=== PATIENT | female | born 1960 | race Two or more races ===

== ENCOUNTER 2021-05-23 08:42 | Inpatient (IN) | payer BC, OTHER ==
[~2021-05-23] VITALS: Ht 167.6 cm; Wt 77.0 kg
[2021-05-23] MEDS ORDERED: ALBUTEROL SULF 2.5 MG/0.5ML(0.5%) NEB SOLN NEB ONE ×3 (08:45→12:45)
[2021-05-23] MEDS ORDERED: methylPREDNISolone SOD SUCC 125 MG/2 ML VL IV ONE (08:45)
[2021-05-23] MEDS ORDERED: IPRATROPIUM BROM 0.5 MG/2.5ML INH SOL NEB ONE ×3 (08:45→12:45)
[2021-05-23 09:59] LABS: Hematocrit 40.6 % (36.0-46.0); Hemoglobin 13.9 g/dL (12.2-16.2); Mean Corpuscular Hemoglobin 31.5 pg (28.0-32.0); Mean Corpuscular Hgb Conc. 34.2 g/dL (32.0-36.0); Red Blood Cells 4.42 10^6/uL (4.0-5.20); Red Cell Distribution Width 13.8 % (11.8-14.3)
[2021-05-23 10:09] LABS: Basophils % (manual) 0 (0.0-2.0); Blast Cells 0; Eosinophils % (manual) 0 (0-7); Metamyelocytes % 0; Myelocytes % 0; Promyelocytes % 0; Reactive Lymphocytes 0
[2021-05-23 10:18] LABS: Albumin 2.4 g/dL (3.4-5.0); BUN/Creatinine Ratio 14.3; Calcium 9.5 mg/dL (8.5-10.1); Potassium 3.9 mmol/L (3.5-5.1)
[2021-05-23 10:23] LABS: Total Protein 7.5 g/dL (6.4-8.2)
[2021-05-23 10:24] LABS: Band Neutrophils % (manual) 25; Lymphocytes % (manual) 5 (10.0-50.0); Monocytes % (manual) 5 (0-12)
[2021-05-23 11:16] LABS: Urine Bacteria MANY /hpf (None Seen); Urine Blood 3+ /uL (Negative); Urine Hyaline Cast FEW /lpf (0 - 2); Urine Mucus FEW (None Seen); Urine Specific Gravity 1.026 (1.001-1.035); Urine WBC 33 /hpf (0 - 5)
[2021-05-23 11:21] LABS: INR 0.99 (0.9-1.15); Partial Thromboplastin Time 34.1 sec (23.6-33.0)
[2021-05-23] MEDS ORDERED: IOHEXOL 350 MG/ML 100ML IJ ONE (11:57)
[2021-05-23] MEDS ORDERED: cefTRIAXone 1GM/50ML D5W 50 ML IV ONE (12:15)
[2021-05-23] MEDS ORDERED: NITROGLYCERIN 0.4 MG SL TAB SL PRN ×2 (12:30→14:00)
[2021-05-23] MEDS ORDERED: MORPHINE SULFATE INJECTION 2 MG/ML SYRG IV PRN ×3 (12:30→14:00)
[2021-05-23] MEDS ORDERED: SODIUM CHLORIDE 0.9% 1,000 ML IV SCH ×2 (12:30→13:45)
[2021-05-23] MEDS ORDERED: FOLIC ACID 1 MG TAB PO ONE (12:45)
[2021-05-23] MEDS ORDERED: LORazepam 0.5 MG TAB PO PRN (12:45)
[2021-05-23] MEDS ORDERED: PANTOPRAZOLE 40 MG/10 ML VIAL INJ IV ONE (12:45)
[2021-05-23] MEDS ORDERED: METOCLOPRAMIDE HCL 5MG/ml INJ 2ml VIAL IV PRN (12:45)
[2021-05-23] MEDS ORDERED: ACETAMINOPHEN 325 MG TAB PO PRN (12:45)
[2021-05-23] MEDS ORDERED: hydrALAZINE HCL 20 MG/ML VL IV PRN (12:45)
[2021-05-23] MEDS ORDERED: levoFLOXacin 750MG 150 ML IV ONE (12:45)
[2021-05-23] MEDS ORDERED: SUCRALFATE 1 GM/10 ML ORAL SUSP PO ONE (12:45)
[2021-05-23] MEDS ORDERED: DOCUSATE SOD 100 MG CAP PO PRN (12:45)
[2021-05-23] MEDS ORDERED: MONTELUKAST SODIUM 10 MG TAB PO ONE (12:45)
[2021-05-23] MEDS ORDERED: HYDROcodone-ACET 5/325MG TAB PO ONE (12:45)
[2021-05-23] MEDS ORDERED: ENOXAPARIN SOD 100 MG/1 ML SYRINGE SC ONE (12:45)
[2021-05-23] MEDS ORDERED: MULTIPLE VITAMINS W/ MINERALS TAB PO ONE (12:45)
[2021-05-23] MEDS ORDERED: BUDESONIDE (INHALATION) 0.5 MG/2 ML NEB NEB ONE (12:45)
[2021-05-23] MEDS ORDERED: LACTULOSE 20Gm/30ML SOLN PO PRN (12:45)
[2021-05-23] MEDS ORDERED: PROMETHAZINE-DM 5 ML ORAL SYRUP GT PRN (13:00)
[2021-05-23 13:08] LABS: Magnesium 2.4 mg/dL (1.6-2.6); Phosphorus 1.8 mg/dL (2.5-4.90)
[2021-05-23] MEDS: levoFLOXacin 750MG 150 ML IV SCH (13:45)
[2021-05-23] MEDS: ALBUTEROL SULF 2.5 MG/0.5ML(0.5%) NEB SOLN NEB SCH ×4 (14:31→22:29)
[2021-05-23] MEDS: ACETYLCYSTEINE 10 %(100MG/ML) SOL 4ML NEB SCH ×2 (14:32→22:26)
[2021-05-23 14:39] LABS: INR 1.01 (0.9-1.15); Partial Thromboplastin Time 32.2 sec (23.6-33.0)
[2021-05-23] MEDS: IPRATROPIUM BROM 0.5 MG/2.5ML INH SOL NEB SCH ×4 (14:50→22:29)
[2021-05-23] MEDS: methylPREDNISolone SOD SUCC 40 MG/ML VL IV SCH ×2 (16:19→21:21)
[2021-05-23] MEDS ORDERED: IPRATROPIUM BROM 0.5 MG/2.5ML INH SOL NEB SCH (18:00)
[2021-05-23] MEDS ORDERED: HYDROcodone-ACET 5/325MG TAB PO PRN (18:00)
[2021-05-23] MEDS ORDERED: ALBUTEROL SULF 2.5 MG/0.5ML(0.5%) NEB SOLN NEB SCH (18:00)
[2021-05-23 18:20] VITALS: BP 101/61
[2021-05-23] MEDS ORDERED: ATOR10TA PO (19:01)
[2021-05-23] MEDS ORDERED: BUDE1AER6 IN (19:02)
[2021-05-23] MEDS ORDERED: CETI10TA2 PO (19:02)
[2021-05-23] MEDS: BUDESONIDE (INHALATION) 0.5 MG/2 ML NEB NEB SCH (19:16)
[2021-05-23] MEDS: ENOXAPARIN SOD 40 MG/0.4 ML SYRINGE SC SCH (21:22)
[2021-05-23 22:00] VITALS: BP 104/65
[2021-05-23] MEDS ORDERED: ATORVASTATIN 20 MG TAB PO SCH (22:00)
[2021-05-23] MEDS ORDERED: MONTELUKAST SODIUM 10 MG TAB PO SCH (22:00)
[2021-05-23] MEDS ORDERED: ENOXAPARIN SOD 100 MG/1 ML SYRINGE SC SCH (22:00)
[2021-05-23] MEDS ORDERED: SUCRALFATE 1 GM/10 ML ORAL SUSP PO SCH (22:00)
[2021-05-24 05:00] VITALS: BP 124/76
[2021-05-24] MEDS: methylPREDNISolone SOD SUCC 40 MG/ML VL IV SCH (05:32)
[2021-05-24 05:33] LABS: Hematocrit 36.7 % (36.0-46.0); Hemoglobin 12.8 g/dL (12.2-16.2); Mean Corpuscular Hgb Conc. 34.9 g/dL (32.0-36.0); Mean Corpuscular Volume 91.7 fL (80.0-100.0); Red Cell Distribution Width 13.7 % (11.8-14.3); White Blood Cell 23.9 10^3/uL (4.4-10.8)
[2021-05-24 05:47] LABS: INR 0.99 (0.9-1.15); Partial Thromboplastin Time 34.4 sec (23.6-33.0)
[2021-05-24 06:03] LABS: Alanine Aminotransferase 25 U/L (13-56); Albumin 2.2 g/dL (3.4-5.0); Alkaline Phosphatase 126 U/L (45-117); Aspartate Aminotransferase 27 U/L (15-37); BUN/Creatinine Ratio 18.2; Bilirubin, Total 0.4 mg/dL (0.2-1.0); Blood Urea Nitrogen 18 mg/dL (7-18); Calcium 9.8 mg/dL (8.5-10.1); Carbon Dioxide 22 mmol/L (21-32); Cholesterol 150 mg/dL (< 200); GFR African American 74 mL/min; GFR Non-African American 61 mL/min; Glucose 344 mg/dL (74-106); HDL Cholesterol 28 mg/dL (40-59); LDL Cholesterol 99 mg/dL (< 100); Lipase 46 U/L (73-393); Phosphorus 2.7 mg/dL (2.5-4.90); Total Protein 7.2 g/dL (6.4-8.2); Triglycerides 136 mg/dL (< 150); Uric Acid 5.8 mg/dL (2.6-6.0)
[2021-05-24 06:04] LABS: Basophils % (manual) 0 (0.0-2.0); Blast Cells 0; Eosinophils % (manual) 0 (0-7); Metamyelocytes % 0; Myelocytes % 0; Promyelocytes % 0; Reactive Lymphocytes 0
[2021-05-24 06:12] LABS: CRP High Sensitivity > 19.0 mg/dL (< 0.3)
[2021-05-24 06:14] LABS: Anion Gap 9 (5-15); Chloride 104 mmol/L (98-107); Magnesium 2.4 mg/dL (1.6-2.6); Potassium 3.8 mmol/L (3.5-5.1); Sodium 135 mmol/L (136-145)
[2021-05-24] MEDS: ACETYLCYSTEINE 10 %(100MG/ML) SOL 4ML NEB SCH (06:25)
[2021-05-24] MEDS: IPRATROPIUM BROM 0.5 MG/2.5ML INH SOL NEB SCH ×2 (06:26→09:53)
[2021-05-24] MEDS: BUDESONIDE (INHALATION) 0.5 MG/2 ML NEB NEB SCH (06:26)
[2021-05-24] MEDS: ALBUTEROL SULF 2.5 MG/0.5ML(0.5%) NEB SOLN NEB SCH ×2 (06:26→09:53)
[2021-05-24] MEDS: ENOXAPARIN SOD 40 MG/0.4 ML SYRINGE SC SCH (08:49)
[2021-05-24] MEDS: levoFLOXacin 750MG 150 ML IV SCH (08:49)
[2021-05-24 09:00] VITALS: BP 109/73
[2021-05-24] MEDS ORDERED: PANTOPRAZOLE 40 MG/10 ML VIAL INJ IV SCH (10:00)
[2021-05-24] MEDS ORDERED: CYANOCOBALAMIN 500 MCG TAB PO SCH (10:00)
[2021-05-24] MEDS ORDERED: THIAMINE HCL 100 MG TAB PO SCH (10:00)
[2021-05-24] MEDS ORDERED: levoFLOXacin 750MG 150 ML IV SCH (10:00)
[2021-05-24] MEDS ORDERED: CHOLECALCIFEROL (VITD3) 2,000 UNIT CAP/TAB PO SCH (10:00)
[2021-05-24] MEDS ORDERED: MULTIPLE VITAMINS W/ MINERALS TAB PO SCH (10:00)
[2021-05-24] MEDS ORDERED: ASPirin 81 mg TAB PO SCH (10:00)
[2021-05-24] MEDS ORDERED: FOLIC ACID 1 MG TAB PO SCH (10:00)
[2021-05-24 11:18] LABS: Band Neutrophils % (manual) 2; Lymphocytes % (manual) 3 (10.0-50.0); Monocytes % (manual) 2 (0-12)
== END 2021-05-24 13:45 | disposition home health service (06) | DRG 190 ==
LOC: EDBD 08:42 → ER 08:42 → TELE 12:50 → TELE-EAST 18:03
PROVIDERS: ADMIT Hospitalist; ATTEND Internal Medicine
DX: J44.1 Chronic obstructive pulmonary disease with (acute) exacerbation (principal); J18.9 Pneumonia, unspecified organism; N39.0 Urinary tract infection, site not specified; J44.0 Chronic obstructive pulmonary disease with (acute) lower respiratory infection; E88.09 Other disorders of plasma-protein metabolism, not elsewhere classified; D72.829 Elevated white blood cell count, unspecified; N18.2 Chronic kidney disease, stage 2 (mild); F17.210 Nicotine dependence, cigarettes, uncomplicated; Z20.822 Contact with and (suspected) exposure to COVID-19; E66.9 Obesity, unspecified; Z68.27 Body mass index [BMI] 27.0-27.9, adult
CPT/HCPCS: 36415; 36600; 70450; 71045; 71275; 80053; 80061; 81001; 82728; 82805; 83036; 83615; 83690; 83735; 83880; 84100; 84443; 84484; 84550; 85007; 85027; 85379; 85610; 85652; 85730; 86141; 87040; 87086; 87088; 87186; 93005; 93306; 93970; 94640; 96361; 96365; 96375; C9113; G0378; J0696; J1956